=== PATIENT | male | born 1990 | race Caucasian/White ===

== ENCOUNTER 2017-07-28 12:54 | Emergency (ER) | payer OTHER ==
[2017-07-28] MEDS ORDERED: FLEXERIL PO ONE (19:38)
[2017-07-28] MEDS ORDERED: MOTRIN PO ONE (19:38)
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
[2017-07-28 20:52] VITALS: BP 147/94
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
== END 2017-07-28 21:19 | disposition home or self-care (01) ==
LOC: ED 12:54
DX: S50.02XA Contusion of left elbow, initial encounter (principal); M25.522 Pain in left elbow; F17.200 Nicotine dependence, unspecified, uncomplicated; V49.59XA Passenger injured in collision with other motor vehicles in traffic accident, initial encounter; Y93.89 Activity, other specified; Y92.89 Other specified places as the place of occurrence of the external cause; Y99.8 Other external cause status
CPT/HCPCS: 72040; 99284